=== PATIENT | female | born 1975 | race Caucasian/White ===

== ENCOUNTER 2017-07-08 15:06 | Emergency (ER) | payer MEDICAID ==
[2017-07-08 15:12] VITALS: TEMP 98.4
[2017-07-08] MEDS ORDERED: CYCLOBENZAPRINE 10 MG TAB PO ONE (17:03)
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
[2017-07-08] MEDS ORDERED: ONDANSETRON DISINTEGRATING 4 MG TAB ONE (17:23)
[2017-07-08 18:41] VITALS: BP 126/78; PULSE 60; RESP 16; O2SAT 96
== END 2017-07-08 18:40 | disposition home or self-care (01) ==
DX: S16.1XXA Strain of muscle, fascia and tendon at neck level, initial encounter (principal); S09.90XA Unspecified injury of head, initial encounter; J45.909 Unspecified asthma, uncomplicated; F17.200 Nicotine dependence, unspecified, uncomplicated; Z91.040 Latex allergy status; V49.40XA Driver injured in collision with unspecified motor vehicles in traffic accident, initial encounter; Y92.410 Unspecified street and highway as the place of occurrence of the external cause; Y99.8 Other external cause status; Y93.89 Activity, other specified

== ENCOUNTER → 2018-03-14 | Outpatient (CLI) | payer MEDICAID | LOC: FIMAGING 08:45 | PROVIDERS: ATTEND Physician Assistant | DX: N63.20 Unspecified lump in the left breast, unspecified quadrant (principal); N64.4 Mastodynia ==